=== PATIENT | male | born 1975 | race Caucasian/White ===

== ENCOUNTER 2017-08-21 20:09 | Emergency (ER) | payer SELFPAY ==
[~2017-08-21] VITALS: Ht 175.3 cm; Wt 1157.6 kg
[2017-08-21 20:15] VITALS: Ht 175.3 cm; Wt 1157.6 kg
[2017-08-21 21:09] VITALS: BP 125/79
== END 2017-08-21 21:05 | disposition home or self-care (01) ==
LOC: ED 20:09
DX: R06.00 Dyspnea, unspecified (principal); J70.5 Respiratory conditions due to smoke inhalation
CPT/HCPCS: J7512